=== PATIENT | female | born 1970 | race Caucasian/White ===

== ENCOUNTER 2017-12-26 05:26 | Emergency (ER) | payer BC ==
[~2017-12-26] VITALS: Ht 167.6 cm; Wt 58.2 kg
[~2017-12-26 05:26] MED LIST: ACETAMINOPHN-T1 EACH PO; B COMPLETE1 EACH PO; BENADRYL25 MG PO; BUPROPION HCL100 M1 PO; COCONUT OIL1000 MG PO; DAILY VITAMIN1 EAC8 PO; EVENING PRIMRO500 MG PO; FLOMAX0.4 MG PO; IBUPROFEN600 MG PO; KRILL OIL500 MG PO; MOTRIN800 MG PO; NO HOME MEDS; PERCOCET 5/31 TABLET PO; PHENERGAN25 MG PR; REGLAN10 MG PO; TAMSULOSIN HCL0.4 MG PO; ULTRACET1 TABLET PO; ZOFRAN ODT4 MG PO; ZOFRAN4 MG PO; ZYRTEC10 M3 PO
[2017-12-26 06:38] LABS: HEMATOCRIT 36.4 % (36.0-46.0); HEMOGLOBIN 12.8 G/DL (11.9-15.5); MCH 30.8 PG (29.0-34.0); MCHC 35.2 G/DL (30.0-36.0); MCV 87.5 FL (83-99); RBC DIS.WIDTH-CV 12.2 % (11.8-14.6); RBC DIS.WIDTH-SD 39.6 % (39-53); RED BLOOD COUNT 4.16 M/uL (3.80-5.20); WHITE BLOOD COUNT 14.1 K/uL (4.1-10.2)
[2017-12-26] MEDS ORDERED: VENLAFAXINE HCL75 M3 PO (06:59)
[2017-12-26 07:01] LABS: CHLORIDE 100 MEQ/L (99-109); POTASSIUM 3.7 MEQ/L (3.7-5.4); SODIUM 138 MEQ/L (136-147); TOTAL BILIRUBIN 0.9 MG/DL (0.0-1.0)
[2017-12-26 07:07] LABS: ALKALINE PHOSPHATASE 56 IU/L (3-129); ALT (GPT) 33 IU/L (3-49); AST (GOT) 22 IU/L (2-34); CREATININE 0.7 MG/DL (0.6-1.3); GFR ESTIMATE (CALCULATED) > 59 mL/min/; GLUCOSE 105 mg/dL (70-99); TOTAL PROTEIN 7.2 G/DL (6.4-8.3); UREA NITROGEN (BUN) 15 mg/dL (9-23)
[2017-12-26 07:33] LABS: QUANTITATIVE HCG < 4.0 MIU/ML
[2017-12-26 07:49] LABS: PLAT.SUFFICIENCY ADEQUATE; PLATELET COUNT 312 K/uL (156-360)
[2017-12-26 10:02] LABS: APPEARANCE SL.HAZY ((CLEAR)); BILIRUBIN NEGATIVE; BLOOD NEGATIVE; COLOR AMBER ((YELLOW)); GLUCOSE (STRIP) NEGATIVE; KETONES 20; LEUKOCYTES NEGATIVE; NITRITE NEGATIVE; PROTEIN (STRIP) 30; SPECIFIC GRAVITY 1.024 (1.000-1.030); UROBILINOGEN 0.2 MG/DL (0.2-1.0)
[2017-12-26 10:14] LABS: BACTERIA RARE /HPF; EPITHELIAL CELLS 1+ /HPF; HYALINE CASTS 0-5 /LPF; MUCUS TRACE /LPF; UCUL ADDED? NO; WHITE BLOOD CELLS 0-5 /HPF (0-5)
[2017-12-26 11:23] VITALS: BP 105/70
== END 2017-12-26 11:24 | disposition home or self-care (01) ==
LOC: EME 05:26
DX: R11.2 Nausea with vomiting, unspecified (principal); T43.215A Adverse effect of selective serotonin and norepinephrine reuptake inhibitors, initial encounter; F41.9 Anxiety disorder, unspecified
CPT/HCPCS: 80053; 81003; 84702; 85027; 99281; 99285; J1630

== ENCOUNTER 2018-05-10 07:32 | Emergency (ER) | payer BC ==
[~2018-05-10] VITALS: Ht 167.6 cm; Wt 63.0 kg
[~2018-05-10 07:32] MED LIST changes: +VENLAFAXINE HCL75 M3 PO
[2018-05-10] MEDS ORDERED: NORCO 5/3251 TABLET PO (09:27)
[2018-05-10 10:36] VITALS: BP 136/90
== END 2018-05-10 10:36 | disposition home or self-care (01) ==
LOC: EME 07:32
PROC: 2W3RX1Z Immobilization of Left Lower Leg using Splint (ICD-10-PCS; principal; 2018-05-10)
DX: S82.62XA Displaced fracture of lateral malleolus of left fibula, initial encounter for closed fracture (principal); X50.1XXA Overexertion from prolonged static or awkward postures, initial encounter; Y93.01 Activity, walking, marching and hiking; Y92.007 Garden or yard of unspecified non-institutional (private) residence as the place of occurrence of the external cause; Z88.8 Allergy status to other drugs, medicaments and biological substances
CPT/HCPCS: 73610; 99281; 99284